=== PATIENT | female | born 2005 | race African-American/Black ===

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

== ENCOUNTER 2024-03-28 03:21 | Emergency (ER) | payer SELFPAY ==
[~2024-03-28] VITALS: Ht 172.7 cm; Wt 59.0 kg
[2024-03-28 04:21] VITALS: BP 117/73; TEMP 98.3; O2SAT 98
== END 2024-03-28 04:21 | disposition home or self-care (01) ==
LOC: ER 03:22
DX: R06.00 Dyspnea, unspecified (principal)
CPT/HCPCS: 71045-TC